=== PATIENT | male | born 1970 | race Caucasian/White ===

== ENCOUNTER 2021-04-02 19:32 | Emergency (ER) | payer BC ==
[2021-04-02] MEDS ORDERED: predniSONE 20 MG Tab PO STA (19:34)
[2021-04-02] MEDS ORDERED: Phenylephrine 0.5% Nasal Spray 15 ML Bot NASBOTH ONE (19:50)
--- NOTE | 2021-04-02 19:50 | EDM.PDOC ---
ED HPI GENERAL MEDICAL PROBLEM - General Chief Complaint: Respiratory Problem Stated Complaint: Cold, Congestion Time Seen by Provider: 04/02/21 19:32 Source of Information: Reports: Patient History Limitations: Reports: No Limitations - History of Present Illness INITIAL COMMENTS - FREE TEXT/NARRATIVE: Patient comes emergency department today with complaints of sinus congestion drainage pressure and a mild cough. This patient for the past 2 days has had quite a bit of sinus congestion drainage and pressure. He does have a chronic ear infection to the right ear for which she is on 7 days of a 14-day stent of amoxicillin for recurrent AOM of the right ear which she is following with ENT in [place]. For the past 2 days he has had this sinus congestion drainage pressure mild cough. He has tried [id number] oral therapy without improvement. He denies any fever or chills. No chest pain difficulty breathing weakness dizziness lightheadedness. No syncope. His cough is dry hacking in nature and nonproductive. No abdominal pain nausea or vomiting. No hematuria dysuria urinary frequency. No black or tarry stools. He has received his Covid vaccine. No myalgias malaise or fatigue. - Related Data Allergies Allergy/AdvReac Type Severity Reaction Status Date / Time coconut Allergy Airway Verified 04/02/21 19:34 Tightness naproxen [From Aleve] Allergy Airway Verified 04/02/21 19:34 Tightness Flu Vaccine Allergy Other Uncoded 04/03/21 00:39 Home Meds: Home Meds Amoxicillin 500 mg PO [id number] 04/02/21 [History] ED ROS GENERAL - Review of Systems Review Of Systems: Comprehensive ROS is negative, except as noted in HPI. ED EXAM, GENERAL - Physical Exam Exam: See Below Exam Limited By: No Limitations General Appearance: Alert, WD/WN, No Apparent Distress Eye Exam: Bilateral Eye: EOMI, Normal Inspection, PERRL Ears: Normal External Exam. No: Normal TMs (Left TM is unremarkable. Right TM has purulent effusion with an intact membrane that is not erythematous canal is unremarkable) Nose: Clear Rhinorrhea, Other (Nasal turbinates are boggy pale swollen with clear rhinorrhea) Throat/Mouth: Normal Inspection, Normal Lips, Normal Voice. No: Normal Oropharynx (Posterior pharynx with a large amount of pink salmon-colored vesicles and cobblestoning consistent with postnasal drip. No erythema injection or exudate tonsils are unremarkable) Head: Atraumatic, Normocephalic Neck: Normal Inspection, Supple, Non-Tender, Full Range of Motion Respiratory/Chest: No Respiratory Distress, Lungs Clear, Normal Breath Sounds, No Accessory Muscle Use, Chest Non-Tender Cardiovascular: Normal Peripheral Pulses, Regular Rate, Rhythm GI/Abdominal: Normal Bowel Sounds, Soft, Non-Tender (Male) Exam: Deferred Rectal (Males) Exam: Deferred Back Exam: Normal Inspection Extremities: Normal Inspection, Normal Range of Motion, Non-Tender, No Pedal Edema, Normal Capillary Refill Neurological: Alert, Oriented, Normal Cognition, No Motor/Sensory Deficits Psychiatric: Normal Affect, Normal Mood, Tearful Skin Exam: Warm, Dry, Intact, Normal Color, No Rash Lymphatic: No Adenopathy Course - Vital Signs Last Recorded V/S: Last Vital Signs Temp 99.2 F 04/02/21 19:35 Pulse 113 H 04/02/21 19:35 Resp 20 04/02/21 19:35 BP 140/87 04/02/21 19:35 Pulse Ox 97 04/02/21 19:35 - Orders/Labs/Meds Labs: Laboratory Tests 04/02/21 Range/Units 19:37 SARS-CoV-2 Ag (Rapid) Negative (NEGATIVE) Meds: Medications Discontinued Medications Generic Name Dose Route Start Last Admin Trade Name Monisha PRN Reason Stop Dose Admin Phenylephrine HCl 1 ml 04/02/21 19:50 04/02/21 19:53 Phenylephrine 0.5% Nasal [place] 15 Ml Bot NASBOTH 04/02/21 19:51 1 spray ONETIME ONE Administration Prednisone 40 mg 04/02/21 19:34 04/02/21 19:46 Prednisone 20 Mg Tab PO 04/02/21 19:35 40 mg NOW STA Administration - Re-Assessments/Exams Free Text/Narrative Re-Assessment/Exam: Patient was given Ron-Synephrine as well as prednisone. Covid is negative. I explained to the patient that not only he still has that continued right ear infection which she is aware of but he still has another week of antibiotics and is closely following with ENT so we will not change any therapy at this time. He clearly has a secondary acute sinusitis in the treatment of choice at this time would be symptomatic management with nasal rinses intranasal corticosteroids as well as systemic steroids for his cough. We will discharge him home with prednisone as well as other symptoms management. He is comfortable with this plan and his questions were answered. Departure - Departure Time of Disposition: 19:45 Disposition: Home, Self-Care 01 Clinical Impression: Recurrent acute otitis media of right ear Acute sinusitis Qualifiers: Sinusitis location: maxillary Recurrence: not specified as recurrent Qualified Code(s): J01.00 - Acute maxillary sinusitis, unspecified URI (upper respiratory infection) Qualifiers: URI type: unspecified viral URI Qualified Code(s): J06.9 - Acute upper respiratory infection, unspecified - Discharge Information Instructions: Viral Respiratory Infection, [id number], Sinusitis, Adult, [id number], How to Perform a Sinus Rinse, [id number] Referrals: Renata Yates PA-C [Primary Care Provider] - Forms: ED Department Discharge Additional Instructions: Increase fluids over the next few days. OTC Afrin 2 sprays each nostril twice daily. NO MORE THAN 2 days of this. 10 Minutes later. Saline nasal rinse, OTC Netti Pot etc twice daily. 10 minutes later Flonase 1 spray each nostril twice daily for the next 7 days and then 1 spray each nostril daily. Continue the amoxicillin as previous. Albuterol Inhaler 2 puffs every 4 hrs as needed for cough. Dispensed from the ED. Prednisone 40mg daily for the next 5 days. Sent home with the patient from the ED. Return to the ED if new or worsening symptoms. Follow up with PCP in the next 4-6 days if not improving sooner if worse.
== END 2021-04-02 20:29 | disposition home or self-care (01) ==
LOC: LL.ED 19:32
DX: J01.00 Acute maxillary sinusitis, unspecified (principal); J06.9 Acute upper respiratory infection, unspecified; H66.91 Otitis media, unspecified, right ear; Z20.822 Contact with and (suspected) exposure to COVID-19; Z88.7 Allergy status to serum and vaccine; Z91.018 Allergy to other foods; Z88.8 Allergy status to other drugs, medicaments and biological substances
CPT/HCPCS: 87426; 99283; A9270-GY; J7512

== ENCOUNTER 2024-03-07 09:41 | Day surgery (SDC) | payer BC ==
[~2024-03-07 09:41] MED LIST: Midazolam 1 MG/ML 2 ML SDV ONE; Propofol 200 MG/20 ML SDV ONE
[2024-03-07] MEDS ORDERED: Sodium Chloride 0.9% 10 ML Syringe FLUSH PRN (10:00)
[2024-03-07] MEDS: Lactated Ringers 1,000 ML IV SCH (10:28)
== END 2024-03-07 11:49 | disposition home or self-care (01) ==
LOC: LL.SDS 09:41
PROVIDERS: ATTEND Surgery
DX: D12.5 Benign neoplasm of sigmoid colon (principal); D12.8 Benign neoplasm of rectum; K57.30 Diverticulosis of large intestine without perforation or abscess without bleeding; I10 Essential (primary) hypertension; M54.2 Cervicalgia; E66.01 Morbid (severe) obesity due to excess calories; Z68.41 Body mass index [BMI] 40.0-44.9, adult; Z79.899 Other long term (current) drug therapy; Z91.018 Allergy to other foods; Z91.030 Bee allergy status; Z88.8 Allergy status to other drugs, medicaments and biological substances; Z80.0 Family history of malignant neoplasm of digestive organs
CPT/HCPCS: 00811 ×2; 45385; J2250; J2704; J7120